=== PATIENT | female | born 1990 | race Caucasian/White ===

== ENCOUNTER 2016-06-02 17:59 | Observation (INO) ==
[2016-06-02 18:48] LABS: Bilirubin,Urine Negative (Negative); Blood,Urine Negative (Negative); Clarity,Urine Cloudy (Clear); Color,Urine Yellow (Yellow); Glucose,Urine (UA) Normal (Normal); Ketones,Urine 15 mg/dL (Negative); Leukocyte Esterase,Urine Negative (Negative); Nitrite,Urine Negative (Negative); Protein,Urine Trace mg/dL (Neg-Trace); Specific Gravity,Urine 1.014 (1.010-1.025); Urobilinogen,Urine Normal (Normal)
[2016-06-02 18:51] LABS: Bacteria,Urine Many per hpf (None-Few); RBC,Urine 0-3 per hpf (0-3); Squamous Epithelial Cell,Urine Many per lpf (None-Few); WBC,Urine 50-100 per hpf (0-3)
--- NOTE | 2016-06-02 18:55 | Discharge Summary ---
Date of Encounter: 06/02/16 Time of Encounter: 18:45 - Discharge Diagnosis (1) UTI (urinary tract infection) in in third trimester Priority: Primary Status: Acute Comments: 2 g of Rocephin given in hospital. Patient sent home on Macrobid 100 mg twice a day for 7 days Patient to follow-up with outpatient OB on Tuesday. - Discharge Medications Prescriptions: Nitrofurantoin Monohyd/M-Cryst [Macrobid 100 mg Capsule] 100 mg PO BID 7 Days Home Medications: Ferrous Sulfate 06/02/16 [History] Nitrofurantoin Monohyd/M-Cryst [Macrobid 100 mg Capsule] 100 mg PO BID 7 Days [Rx] Multi Tablet 06/02/16 [History] Allergies/Adverse Reactions: Allergies No Known Allergies Allergy (Verified 06/02/16 18:15) Data - Impressions HPI: Female patient presenting to labor and delivery for an increased heaviness in her lower abdomen as well as her pelvic region. She states this has been going on for a week but got worse today. She denies any nausea vomiting or diarrhea. She denies any spontaneous rupture of membranes or feeling contractions. She states she does feel her baby move frequently. She denies any fevers. She does have suprapubic pain and the feeling that she still needs to urinate after she has urinated. Her urinalysis which was a dirty catch however she does have urinary symptoms and many white blood cells. We will treat her here with Rocephin 2 g. Patient had minimal contractions all she was here. heart rate was category 1 while she was here. ROS: All other systems reviewed and negative except for stated. Patient denies any fevers or recent illnesses. Patient denies any headaches or visual changes or syncope. She denies any difficulty swallowing chest pain or shortness of breath. She does report a lower abdominal heaviness as well as pelvic heaviness that has been present for 1 week but got worse today. She states that this is worse whenever she stands up. She denies any other abdominal pains. She denies any nausea vomiting or diarrhea. She denies any hematochezia melena or hematuria. She denies any dysuria. She states she does have a feeling that she still needs to urinate after she has urinated. This has been present for 3 days. She reports pedal edema. Date of admission: 06/02/16 17:59 - Patient Status Disposition: Home, Self-Care Condition: Good Functional capacity at discharge: independent ambulation Overall status at discharge: patient is back to baseline - Discharge Instructions Instructions: Urinary Tract Infection in Women (DC) Additional Instructions: 1. Please drink plenty of fluids. 2. Please follow-up at the CONVERTER OPERATOR visit that you have scheduled on Tuesday. 3. Please take your medications as prescribed. Please finish the antibiotics even if he starts to feel better. 4. If you develop a fever or if symptoms worsen or he have any questions or concerns please come to the emergency department. LABOR AND DELIVERY DISCHARGE INSTRUCTIONS Signs and Symptoms to be Reported to your Doctor Immediately: * Sudden gush, continuous or intermittent lead of fluid from vagina (note the time of gush and color of fluid) * Onset of bright red vaginal bleeding with or without pain (if you had a vaginal exam during this visit you may notice some dark red spotting. This is normal.) * Lower abdominal cramping or backache that is premenstrual-like feeling. * More than 6 contractions in one hour. * Burning during urination, having to urinate more frequently or pain in your mid-back. * A change in the baby's activity. This could be an increase or decrease in activity. * Severe headache which does not go away with tylenol. * Sudden swelling in the face, hands, arms and/or legs. * Upper abdominal pain - sometimes associated with heartburn or nausea and is not relieved by Maalox, Mylanta or Tums. * Dizziness or blurred vision or visual disturbances (seeing stars/lights). * Kick Counts One hour after a meal, lay down on one side in a quiet place. Count the number of lane the baby moves during an hour. If less than 6 movements, notify your physician. Diet: *Force fluids - 8-10 tall glasses of fluid per day. May include popsicles and jello. *Limit caffeine - this includes chocolate, coffee, tea, any soft drink containing such as all chicho, Alo Yellow and Mountain Dew - Diet and Activity Activity: resume usual activities as tolerated Diet: advance to your usual diet Hospital Course RISK ANALYST Time Attestation: Total time spent providing and/or coordinating discharge services: Time Spent: Less than 30 minutes Exam - Constitutional General appearance IM: A&O X 3 - Respiratory Respiratory exam: Present: CTAB. Absent: chest wall tenderness, respiratory distress, tachypnea - Cardiovascular Cardiovascular exam IM: Present: RRR. Absent: JVD - GI/Abdominal GI/Abdominal exam IM: normal bowel sounds, soft (Nonrigid. No hepatosplenomegaly palpated. Gravid uterus.), tenderness (Suprapubic.) - Uterine Tone: Firm Additional comments: Measures 36 weeks with fundal height. Cervix was firm and closed. - Extremities Exam Extremities exam IM: Present: full ROM, normal capillary refill, pedal edema, warm, radial pulses palpable and symetrical - Neurological Exam Neurological exam: alert, oriented X3 - VTE Reasons for not Prescribing Prophylaxis: Treatment not Indicated - Low risk for VTE - Attending Attestation I examined this patient and my medical decision-making was reviewed with the IT SYSTEMS ENGINEER/PA/Advanced Practice Nurse/Resident Physician. I agree with the documented findings, disposition and treatment plan as described except to the extent set forth below.
[2016-06-02] MEDS ORDERED: 0.9 % Sodium Chloride 500 ML IVC STA (19:16)
[2016-06-02] MEDS ORDERED: 0.9 % Sodium Chloride 1,000 ML IVC SCH (19:30)
[2016-06-02 19:51] LABS: Basophils % 0.2 %; Eosinophils % 0.3 %; Hematocrit 33.6 % (35.3-44.9); Hemoglobin 11.2 g/dL (11.5-15.4); Immature Granulocytes % 0.6 % (0-4); Lymphocytes % 17.2 %; Mean Corpuscular HGB Conc 33.3 g/dL (31.6-35.5); Mean Corpuscular Volume 93.1 fL (83.0-100.0); Mean Platelet Volume 12.9 fL (9.4-12.4); Monocytes # 0.8 K/mcL (0.0-1.3); Monocytes % 6.6 %; Neutrophils # 8.8 K/mcL (1.6-8.9); Platelet Count 180 K/mcL (140-400); Red Blood Count 3.61 M/mcL (3.82-4.97); Red Cell Distribution Width 13.8 % (11.5-14.5); Segmented Neutrophils % 75.1 %
== END 2016-06-02 20:32 | disposition home or self-care (01) ==
LOC: 1NENULAB
PROVIDERS: ADMIT Obstetrics & Gynecology; ATTEND Obstetrics & Gynecology

== ENCOUNTER 2016-06-18 09:58 | Inpatient (IN) ==
[2016-06-18] MEDS ORDERED: CeFAZolin Pre 3,000 MG/100 ML 3,000 MG/100 ML BAG IVPB ONE (11:06)
[2016-06-18] MEDS ORDERED: Famotidine 20 MG/2 ML VIAL IVP ONE (11:06)
[2016-06-18] MEDS ORDERED: Metoclopramide 10 MG/2 ML VIAL IVP ONE (11:06)
[2016-06-18] MEDS ORDERED: Ringers Solution, Lactated 1,000 ML IVC ONE (11:06)
[2016-06-18 11:11] LABS: Basophils % 0.2 %; Eosinophils # 0.1 K/mcL (0.0-0.6); Eosinophils % 0.5 %; Hematocrit 33.9 % (35.3-44.9); Hemoglobin 11.3 g/dL (11.5-15.4); Immature Granulocytes % 0.4 % (0-4); Lymphocytes # 1.8 K/mcL (0.6-4.6); Lymphocytes % 17.8 %; Mean Corpuscular HGB Conc 33.3 g/dL (31.6-35.5); Mean Corpuscular Volume 92.9 fL (83.0-100.0); Mean Platelet Volume 12.5 fL (9.4-12.4); Monocytes # 0.7 K/mcL (0.0-1.3); Monocytes % 7.1 %; Neutrophils # 7.5 K/mcL (1.6-8.9); Platelet Count 170 K/mcL (140-400); Red Blood Count 3.65 M/mcL (3.82-4.97)
[2016-06-18] MEDS ORDERED: Ringers Solution, Lactated 1,000 ML IVC SCH ×2 (11:15→15:45)
--- NOTE | 2016-06-18 12:09 | Anesthesia Evaluation PreOp ---
Date of Encounter: 06/18/16 Time of Encounter: 12:07 - Past History Planned Operation: Repeat Cardiac History: Denies any Significant Hx Pulmonary History: Denies Any Significant HX, Snore AMBULATORY CARE History: Denies Any Significant HX Other Medical History: GERD, Other (obesity BMI=47.8) Anesthesia History: No Prior Anesthetic Complications, Past Anesthesia : Yes (, IUP 39 weeks) Alcohol Use: none Drug use: none Medications and Allergies Ferrous Sulfate 1 tab PO DAILY 06/02/16 [History] Multi Tablet 1 tab PO DAILY 06/02/16 [History] Allergies No Known Allergies Allergy (Verified 06/02/16 18:15) - Meds/Allergy Pre-op Review Medications Reviewed: Yes Allergies Reviewed: Yes Beta Blockers on Current Med List: No Anesthesia Results - Labs 06/18/16 10:50 Anesthesia Exam 3 Vital Signs Temp 97.1 BP 130/77 Pulse 105 Resp 16 Height: 5'5''/1.65 m Weight: 287 lbs/130 kg NPO (# of Hours): 8 Pain Scale: 0 Pain Scale Used: Numeric (1 - 10) - HEENT Pupil (Motor): EOMI Mallampati: II Teeth: Normal Oral Opening: Greater than 3 - AMBULATORY CARE LOC: Oriented AMBULATORY CARE Motor: Normal RUE, Normal LUE, Normal RLE, Normal LLE, Normal Face AMBULATORY CARE Sensory: Normal: RUE, LUE, RLE, LLE, Face - Cardiac Rhythm: Regular Murmur: None - Pulmonary Breath Sounds: bilateral Clear Respiratory Effort: Symmetrical Anesthesia Assess/Plan ASA Score: 3 Modified Langtry Scale for Level of Consciousness: Cooperative, oriented, and tranquil Anesthetic Plan: Regional Monitoring Plan: Standard Monitors Recovery Plan: PACU
--- NOTE | 2016-06-18 12:53 | OB/GYN History & Physical ---
Date of Encounter: 06/18/16 Time of Encounter: 12:52 Assessment and Plan (1) 39 weeks gestation of Current visit: Yes Status: Acute -Previous . -Possible LGA child. Patient has no questions or concerns Plan -Continue with -Hold and monitor for 24 hours following the surgery -Monitor H&H, (2) Previous section Current visit: Yes Status: Acute (3) Delivery by elective section Current visit: Yes Status: Acute History of Present Illness Chief complaint: elective HPI: Ms. Juarez is a 25 year old female, , 39w 0d, GBS negative c/c planned c- section. Today, the patient has no complaints or concerns. Resting comfortably in bed. Takes no medication, did not smoke, drink or use drugs during her . She has had a previous that was uneventful. No complications during her . Blood type:A positive. Varicella and Rubella positive. Past Med Surg Social Fam HX - Past Medical History Medical history: no medical history Psychiatric history: no psych history - Past Surgical History Surgical History: - Social History Smoking Status: Never smoker Smokeless Tobacco Status: No Alcohol use: none Drug use: none - Family History Sister Adopted: No Living Status: Still Living Hx Family Cardiac Disorders: No Hx Family Respiratory Disorders: No Hx Family Cancer: No Hx Family GI Disorders: No Hx Family Endocrine Disorder: No Hx Family Musculoskeletal Disorders: Yes (scoliosis) Hx Family Neuromuscular Disorders: No Hx Family Neurologic Disorders: No Hx Family HEENT Disorders: No Hx Family Autoimmune Disorders: No Obstetrical History - Pregnancies : 2 Para: 1 Term: 1 Livin - History/Complications History/Complications: elective . uncomplicated. Medications and Allergies Ferrous Sulfate 1 tab PO DAILY 06/02/16 [History] Multi Tablet 1 tab PO DAILY 06/02/16 [History] Allergies No Known Allergies Allergy (Verified 06/02/16 18:15) Review of System OB - Cardiovascular Cardiovascular: no chest pain - Respiratory Respiratory: no wheezing - Gastrointestinal Gastrointestinal: no abdominal pain - Genitourinary Genitourinary: no abnormal vaginal bleeding - Menstruation Menstruation: amenorrhea Exam - Constitutional Constitutional: well developed, well nourished, no acute distress - HEENT HEENT: Normocephaly, Mucus Membranes Moist - Lungs Respiratory exam: CTAB - Cardiovascular Cardiovascular exam: RRR, +S1, +S2 - Abdomen Abdomen: Present: gravid, non tender. Absent: diffuse tenderness Results Result Diagrams: 06/18/16 10:50 Abnormal lab results RBC 3.65 M/mcL (3.82-4.97) L 06/18/16 10:50 Hgb 11.3 g/dL (11.5-15.4) L 06/18/16 10:50 Hct 33.9 % (35.3-44.9) L 06/18/16 10:50 MPV 12.5 fL (9.4-12.4) H 06/18/16 10:50 All other labs normal.
[2016-06-18] MEDS ORDERED: *HR* Morphine Sulfate/PF 5 MG/10 ML AMPUL ONE (14:35)
[2016-06-18] MEDS ORDERED: EPHEDrine 50 MG/ML VIAL ONE (15:17)
[2016-06-18] MEDS ORDERED: *HR* HYDROmorphone (PF) 1 MG/ML SYRINGE IVP PRN (15:32)
[2016-06-18] MEDS ORDERED: *HR* Promethazine 25 MG/ML VIAL IVP PRN (15:32)
--- NOTE | 2016-06-18 15:36 | Anesthesia Procedures ---
Date of Encounter: 06/18/16 Time of Encounter: 14:54 Procedures: Anesthesia - Epidural/Spinal Patient ID/Chart reviewed: Yes Patient examined: Yes OB Eval: : 2 OB Eval: Hx Para: 1 OB Eval: Contractions: Non-stressed pattern Consent Obtained: Yes Supplemental Oxygen: None/Room Air Site Prep: Aseptic Technique, Sterile prep and drape, Povidone-Iodine 1% Patient position: upright Local Anesthetic: Lidocaine 1% Amount of Local Anesthetic used: 3 Interspace Used: L4-L5 Loss of Resistance (MANDEEP): No Blood: No CSF: Yes Paresthesia: No Spinal Needle Gauge: 25 Spinal Dose: Marcaine 0.75% 1.8ml Morphine 250mcg Procedure: Spinal 2nd pass success in upright position without any immediate noted difficulty. VSS throughout. Vitals + FHT's: See anesthesia record
[2016-06-18] MEDS ORDERED: *HR* Oxytocin 10 UNIT/ML VIAL IM ONE (15:42)
[2016-06-18] MEDS ORDERED: Dexamethasone 4 MG/ML VIAL ONE (15:42)
[2016-06-18] MEDS ORDERED: Ondansetron 4 MG/2 ML VIAL ONE (15:42)
[2016-06-18] MEDS ORDERED: *HR* OxyCODONE/APAP 5/325 TABLET PO PRN (16:04)
[2016-06-18] MEDS ORDERED: Ondansetron 4 MG/2 ML VIAL IVP PRN (16:04)
[2016-06-18] MEDS ORDERED: Metoclopramide 10 MG/2 ML VIAL IVP PRN (16:04)
[2016-06-18] MEDS ORDERED: Sennosides 8.6 MG TABLET PO PRN (16:04)
[2016-06-18] MEDS ORDERED: Rho Immune Globulin 1,500 UNIT SYRINGE IM ONE (16:04)
[2016-06-18] MEDS ORDERED: Simethicone 80 MG TAB.CHEW PO PRN (16:04)
--- NOTE | 2016-06-18 16:23 | OB/GYN Procedure Note ---
Section - Date of procedure: 06/18/16 Preop diagnosis: desires repeat Post-op diagnosis: same Procedure: section, repeat low transverse Surgeon: Brian Currie Estimated blood loss (cc): 300 Anesthesia Type: Spinal section complications: none Disposition: PACU Specimens: Placenta - (s) A Infant Delivery Date: 06/18/16 Delivery Time: 15:19 Presentation: vertex, compound Gender: Female Viability: Viable Pounds: 7 Ounces: 9 at 1 minute: 9 at 5 minutes: 2 Specimens collected: cord blood Placenta: spontaneous Cord: 3 umbilical vessels - Narrative Narrative: 25-year-old 2 para 1 female presents at 39 weeks gestation for repeat section. This is been uncomplicated. She was aware operative risks and signed appropriate consent. Description of procedure: Patient was taken operating room where spinal anesthesia was administered. She was prepped and draped in usual sterile fashion bladder was drained of clear urine. Scalpel was used to make a Pfannenstiel skin incision which was sharply taken to the rectus fascia. Rectus fascia was incised the midline fascial incision was extended bilaterally. Peritoneum was entered bluntly and peritoneal incision was extended and bladder blade was placed bladder flap was developed and lower uterine segment. Bladder blade was placed. Scalpel was used to make a small incision in segment and this was extended bluntly bilaterally. Number into ruptured of clear fluid. was delivered from vertex presentation and oropharynx and nasopharynx were suctioned of clear fluid. Cord was clamped and cut and was handed nurse personnel who were in attendance. weight was 9 lbs. 2 oz. with Apgars of 7 at 1 minute and 9 at 5 minutes. Placenta was delivered manually and uterine cavity was massaged from all residual tissue. Uterus was closed with 0 vicryl in a double layered locking manner. Fascia was closed with 0 vicryl. Skin edges closed with 4-0 vicryl. All sponge and instrument counts are correct patient taken recovery in good condition. All sponge instrument counts are correct patient was taken to recovery in good condition.
[2016-06-18] MEDS: Oxytocin 20 units/ LR 1000 mL 20 UNIT/1,000 ML BAG IV SCH ×2 (17:35→23:40)
[2016-06-18] MEDS ORDERED: Lanolin 28 GM TUBE TP PRN (23:05)
[2016-06-19 04:13] LABS: Basophils % 0.1 %; Hematocrit 31.4 % (35.3-44.9); Hemoglobin 10.5 g/dL (11.5-15.4); Immature Granulocytes % 0.5 % (0-4); Lymphocytes # 1.6 K/mcL (0.6-4.6); Mean Corpuscular HGB Conc 33.4 g/dL (31.6-35.5); Mean Corpuscular Hemoglobin 31.4 pg (28.0-33.3); Mean Platelet Volume 12.7 fL (9.4-12.4); Monocytes # 1.2 K/mcL (0.0-1.3); Monocytes % 7.8 %; Platelet Count 149 K/mcL (140-400); Red Blood Count 3.34 M/mcL (3.82-4.97); Red Cell Distribution Width 13.8 % (11.5-14.5); Segmented Neutrophils % 80.6 %
--- NOTE | 2016-06-19 06:34 | Anesthesia Evaluation Post Op ---
Date of Encounter: 06/19/16 Time of Encounter: 06:33 - Vital Signs Vital Signs: Vital Signs Temperature 97.5 F L 06/18/16 18:20 Pulse Rate 68 06/18/16 18:20 Respiratory Rate 16 06/18/16 18:20 Blood Pressure 106/63 06/18/16 18:20 O2 Sat by Pulse Oximetry 98 06/18/16 18:20 Temperature 97.9 F 06/18/16 21:30 Pulse Rate 60 06/18/16 21:30 Respiratory Rate 12 06/19/16 05:58 Blood Pressure 110/57 06/18/16 21:30 O2 Sat by Pulse Oximetry 95 06/18/16 21:30 - Lungs Lungs: Clear Ascult./Percussion - Airway Airway: Non-obstructed - Cardiovascular Regular Rate - Mental Status Mental Status: Alert & Oriented, Answers Appropriately - Pain Pain Scale: 0 Pain Scale used: Numeric (1 - 10) - Nausea Vomiting Nausea Vomiting: Not Present - Hydration Hydration: NPO, Pineda catheter - Discharge PostOp Status: Transfer Patient to floor
--- NOTE | 2016-06-19 09:06 | OB/GYN Progress Note ---
Date of Encounter: 06/19/16 Time of Encounter: 09:04 - Assessment and Plan (1) Status post section Current Visit: Yes Status: Resolved patient doing well, aim for discharge POD#2 (2) Delivery by elective section Current Visit: Yes Status: Acute Subjective - Subjective Interval history: saw and exmained patient, she is doing well, , pain is under control, lochia is light, tolerating PO/ambulation : doing well Objective - Vital Signs Latest vital signs: Vital Signs Temp Pulse Resp BP Pulse Ox 06/19/16 06:50 98.1 F 64 12 97/52 96 06/19/16 05:58 12 06/18/16 21:30 97.9 F 60 12 110/57 95 06/18/16 20:35 97.6 F 65 16 112/65 97 06/18/16 20:06 97.6 F 83 16 112/64 98 06/18/16 18:50 98 F 65 18 129/77 99 06/18/16 18:20 97.5 F L 68 16 106/63 98 Intake and Output 06/18/16 06/19/16 06/19/16 23:59 07:59 15:59 Intake Total 1000 / 1000 Output Total 500 / 500 300 / 300 Balance 500 / 500 -300 / -300 Intake: IV Fluids 1000 / 1000 Pitocin 20 unit In 1,000 1000 / 1000 ml @ 125 mls/hr IV .Q8H [facility] Rx#:[id number] Output: Urine 300 / 300 Catheter 500 / 500 Other: Weight 125.6 kg 126.666 kg Patient Weight 06/19/16 23:59 Weight 126.666 kg - Exam Lungs: bilateral: normal Chest: Normal S1, Normal S2 Extremities: Present: normal Abdomen: Present: normal appearance Incision: Present: dressed Uterus: Present: normal - Labs Labs: Laboratory Results - last 24 hr 06/18/16 06/19/16 10:50 03:59 WBC 10.1 14.9 H RBC 3.65 L 3.34 L Hgb 11.3 L 10.5 L Hct 33.9 L 31.4 L MCV 92.9 94.0 MCH 31.0 31.4 MCHC 33.3 33.4 RDW 14.0 13.8 Plt Count 170 149 MPV 12.5 H 12.7 H Immature Gran % 0.4 0.5 Seg Neutrophils % 74.0 80.6 Lymphocytes % 17.8 11.0 Monocytes % 7.1 7.8 Eosinophils % 0.5 0.0 Basophils % 0.2 0.1 Neutrophils # 7.5 12.0 H Lymphocytes # 1.8 1.6 Monocytes # 0.7 1.2 Eosinophils # 0.1 0.0 Basophils # 0.0 0.0
[2016-06-19] MEDS: Prenatal Vit/FA 1 EACH TABLET PO SCH (09:37)
[2016-06-19 20:01] VITALS: BP 115/73
[2016-06-19] MEDS: Ibuprofen 600 MG TABLET PO PRN (20:31)
--- NOTE | 2016-06-20 09:04 | Discharge Summary ---
Date of Encounter: 06/20/16 Time of Encounter: 09:00 - Discharge Diagnosis (1) Breast feeding status of mother Priority: Primary Status: Acute Comments: Continue routine postop/ care discharge home today follow up in 2 weeks for incision check with Dr. Currie (2) Status post section Priority: Secondary Status: Resolved Comments: continue support - Discharge Medications Prescriptions: OxyCODONE/APAP 5/325 [Percocet 5/325 MG] 1 each PO Q4HR PRN #30 tablet PRN Reason: Moderate pain 4-6 Ibuprofen [Motrin] 600 mg PO Q6HR PRN #60 tablet PRN Reason: Cramping Breast Pump [BREAST PUMP] 1 each .ROUTE AD #1 each Home Medications: Ferrous Sulfate 1 tab PO DAILY 06/02/16 [History] Multi Tablet 1 tab PO DAILY 06/02/16 [History] Breast Pump [BREAST PUMP] 1 each .ROUTE AD #1 each 06/20/16 [Rx] Ibuprofen [Motrin] 600 mg PO Q6HR PRN #60 tablet 06/20/16 [Rx] OxyCODONE/APAP 5/325 [Percocet 5/325 MG] 1 each PO Q4HR PRN #30 tablet 06/20/16 [Rx] Vit/FA 1 each PO DAILY tablet 06/20/16 [Rx] Allergies/Adverse Reactions: Allergies No Known Allergies Allergy (Verified 06/02/16 18:15) Data Procedures and tests throughout hospitalization: Laboratory Tests 06/18/16 06/19/16 10:50 03:59 WBC 10.1 14.9 H RBC 3.65 L 3.34 L Hgb 11.3 L 10.5 L Hct 33.9 L 31.4 L MCV 92.9 94.0 MCH 31.0 31.4 MCHC 33.3 33.4 RDW 14.0 13.8 Plt Count 170 149 MPV 12.5 H 12.7 H Immature Gran % 0.4 0.5 Seg Neutrophils % 74.0 80.6 Lymphocytes % 17.8 11.0 Monocytes % 7.1 7.8 Eosinophils % 0.5 0.0 Basophils % 0.2 0.1 Neutrophils # 7.5 12.0 H Lymphocytes # 1.8 1.6 Monocytes # 0.7 1.2 Eosinophils # 0.1 0.0 Basophils # 0.0 0.0 Date of admission: 06/18/16 09:58 Primary care physician: Bobby Arteaga Jr, MD Discharging clinician: Melanie Jim date of discharge: 06/20/16 - Patient Status Disposition: Home, Self-Care Condition: Good Functional capacity at discharge: independent ambulation - Discharge Instructions Follow Up With: Bobby Arteaga Jr, MD [Primary Care Provider] - Brian Currie MD [Partnered Physician] - - Diet and Activity Activity: increase activity as tolerated Diet: regular diet Hospital Course Procedures: [facility] report reviewed by RAFA Young prior to discharge. Reason for admission: section Delivery: section Episiotomy: none Laceration: none complications: none Discharge diagnosis: IUP at term delivered baby: female (breast feeding) Time Attestation: Total time spent providing and/or coordinating discharge services: Time Spent: Less than 30 minutes - VTE Documentation of Mechanical Device: Intermittent pneumatic compression device Exam - Constitutional Vitals: Temp Pulse Resp BP Pulse Ox 98.2 F 93 16 115/73 99 06/19/16 20:00 06/19/16 20:00 06/19/16 20:00 06/19/16 20:00 06/19/16 20:00 General appearance IM: A&O X 3, pleasant, obese, answers questions appropriately - Respiratory Respiratory exam: Present: CTAB - Cardiovascular Cardiovascular exam IM: Present: RRR, +S1, +S2 - GI/Abdominal GI/Abdominal exam IM: normal bowel sounds Incision: normal, dry, intact, other Additional comments: steri strips and binder present - Uterine Tone: Firm Uterus Position: 2 Fingers Below Umbilicus, Midline - Extremities Exam Extremities exam IM: Present: full ROM, normal capillary refill, normal inspection - Neurological Exam Neurological exam: alert, oriented X3, reflexes normal
[2016-06-20] MEDS: Prenatal Vit/FA 1 EACH TABLET PO SCH (09:52)
[2016-06-20] MEDS: Ibuprofen 600 MG TABLET PO PRN (09:52)
== END 2016-06-20 10:40 | disposition home or self-care (01) | DRG 765 ==
LOC: 1NENULAB 09:58 → 1NENUOBS 18:46
PROVIDERS: ATTEND Obstetrics & Gynecology